=== PATIENT | male | born 1970 | race Caucasian/White ===

== ENCOUNTER 2022-12-03 14:34 | Emergency (ER) | payer OTHER ==
[2022-12-03] MEDS ORDERED: DIAZEPAM 5 MG TABLET ONE (15:18)
[2022-12-03] MEDS ORDERED: HYDROCODONE/APAP 5/325 MG TAB ONE (15:19)
--- NOTE | 2022-12-03 16:15 | RAD REPORT ---
EXAM DESCRIPTION: RAD - Shoulder Right 2 View - 12/03/2022 4:08 pm CLINICAL HISTORY: PAIN COMPARISON: No comparisons FINDINGS/IMPRESSION: No acute fracture. No malalignment. No significant focal degenerative changes.
--- NOTE | 2022-12-03 17:07 | ER ---
Nurse's Notes [facility] Name: Darnell Westbrook Jr Age: 52 yrs Sex: Male : 1970 Arrival Date: 12/03/2022 Time: 14:34 Bed Treatment Private MD: Diagnosis: Peripheral Neuropathy;Pain in right arm Presentation: 12/03 14:40 Chief complaint: Patient states: "I was throwing crap in the back of my truck a few aa5 days ago and ever since then my arm has been hurting". Pt c/o right shoulder pain radiating up to neck and down right arm. Coronavirus screen: At this time, the client does not indicate any symptoms associated with coronavirus-19. Ebola Screen: Patient denies travel to an Ebola-affected area in the 21 days before illness onset. Initial Sepsis Screen: Does the patient meet any 2 criteria? No. Patient's initial sepsis screen is negative. Does the patient have a suspected source of infection? No. Patient's initial sepsis screen is negative. Risk Assessment: Do you want to hurt yourself or someone else? Patient reports no desire to harm self or others. Onset of symptoms was November 2022. 14:40 Acuity: SADIA 4 aa5 14:40 Method Of Arrival: Ambulatory aa5 Historical: - Allergies: 14:42 No Known Allergies; aa5 - Home Meds: 14:42 None [Active]; aa5 - PMHx: 14:42 None; aa5 - Immunization history:: Adult Immunizations unknown. - Social history:: Smoking status: Patient reports the use of cigarette tobacco products. Screenin:[facility] ED Fall Risk Assessment (Adult) History of falling in the last 3 months, ph including since admission No falls in past 3 months (0 pts) Confusion or Disorientation No (0 pts) Intoxicated or Sedated No (0 pts) Impaired Gait No (0 pts) Mobility Assist Device Used No (0 pt) Altered Elimination No (0 pt) Score/Fall Risk Level 0 - 2 = Low Risk Maintained a safe environment, Hourly rounding (assess needs \\T\\ fall precautionary measures) done. Abuse screen: Denies threats or abuse. Denies injuries from another. Nutritional screening: No deficits noted. Tuberculosis screening: No symptoms or risk factors identified. Assessment: 15:00 General: Appears in no apparent distress. comfortable, slender, Behavior is calm, ph cooperative, appropriate for age. Pain: Complains of pain in right trapezius and right scapular area Pain radiates to right arm. Neuro: Gutiérrez Agitation-Sedation Scale (RASS): 0 - Alert and Calm Level of Consciousness is awake, alert, obeys commands, Oriented to person, place, time, situation. Cardiovascular: Capillary refill < 3 seconds in bilateral fingers Patient's skin is warm and dry. Respiratory: Airway is patent Respiratory effort is even, unlabored. Derm: Skin is pink, warm \\T\\ dry. Vital Signs: 14:40 BP 127 / 80; Pulse 67; Resp 18 S; Temp 97.2(TE); Pulse Ox 100% on R/A; Weight 74.84 kg aa5 (R); Height 6 ft. 3 in. (R); 14:40 Body Mass Index 20.62 (74.84 kg, 190.5 cm) aa5 ED Course: 14:37 Patient arrived in ED. am2 14:40 Arm band placed on. aa5 14:41 Triage completed. aa5 14:51 Oral Aguero DO is Attending Physician. ms3 15:08 Nu Tello, RN is Primary Nurse. ph 15:57 Patient has correct armband on for positive identification. Bed in low position. Call ph light in reach. Side rails up X 1. Door closed. Noise minimized. 16:10 Shoulder Right (2 View) XRAY In Process Unspecified. EDMS 17:00 No provider procedures requiring assistance completed. Patient did not have IV access ph during this emergency room visit. 17:05 Salomon Rodriguez DO is Referral Physician. ms3 Administered Medications: 15:14 Drug: HYDROcodone-acetaminophen PO 5 mg-325 mg 1 tabs Route: PO; ph 17:34 Follow up: Response: No adverse reaction ph 15:14 Drug: Diazepam PO 5 mg Route: PO; ph 17:34 Follow up: Response: No adverse reaction ph Medication: 15:57 VIS not applicable for this client. ph Outcome: 17:06 Discharge ordered by . ms3 17:33 Discharged to home ambulatory, with significant other. ph 17:33 Condition: good 17:33 Discharge instructions given to patient, Instructed on discharge instructions, follow up and referral plans. medication usage, Demonstrated understanding of instructions, follow-up care, medications, Prescriptions given X 2. 17:34 Patient left the ED. ph Signatures: Dispatcher [employer] EDAlisha Arriaga RN RN aa5 Nu Tello RN RN ph Génesis Miller am2 Oral Aguero DO DO ms3
--- NOTE | 2022-12-03 17:07 | EDPHYS ---
Physician Documentation [facility] Name: Darnell Westbrook Jr Age: 52 yrs Sex: Male : 1970 Arrival Date: 12/03/2022 Time: 14:34 Bed Treatment Private MD: ED Physician Oral Aguero HPI: 12/03 15:02 This 52 yrs old Male presents to ER via Ambulatory with complaints of Back Pain, ms3 Shoulder Pain - right, Arm Pain. 15:02 52-year-old male with no past medical history presents for right shoulder pain that is ms3 been ongoing for greater than 1 week. Patient states the pain is currently 10/10 and shooting down his right arm. Patient states he is taking BC powder, Aleve without relief. Patient states he has taken his mother's gabapentin and that gave him some relief. Patient denies fevers, chills, nausea, vomiting. Patient endorses medial forearm numbness. Patient states this began prior to his neck surgery in 2019.. Historical: - Allergies: 14:42 No Known Allergies; aa5 - Home Meds: 14:42 None [Active]; aa5 - PMHx: 14:42 None; aa5 - Immunization history:: Adult Immunizations unknown. - Social history:: Smoking status: Patient reports the use of cigarette tobacco products. ROS: 15:02 Constitutional: Negative for fever, and chills. Neck: Negative for injury, pain, and ms3 swelling, Cardiovascular: Negative for chest pain, and palpitations. Respiratory: Negative for shortness of breath, cough, wheezing, and pleuritic chest pain, Abdomen/GI: Negative for abdominal pain, nausea, vomiting, diarrhea, and constipation. 15:02 MS/extremity: Positive for pain, of the Right shoulder. 15:02 All other systems are negative. Exam: 15:02 Constitutional: This is a well developed, well nourished patient who is awake, alert, ms3 and in no acute distress. Head/Face: Normocephalic, atraumatic. Eyes: Pupils equal round and reactive to light, extra-ocular motions intact. Lids and lashes normal. Conjunctiva and sclera are non-icteric and not injected. Periorbital areas with no swelling, redness, or edema. Chest/axilla: Normal chest wall appearance and motion. Nontender with no deformity. Cardiovascular: Regular rate and rhythm with a normal S1 and S2. No gallops, murmurs, or rubs. Normal PMI, no JVD. No pulse deficits. Respiratory: Lungs have equal breath sounds bilaterally, clear to auscultation and percussion. No rales, rhonchi or wheezes noted. No increased work of breathing, no retractions or nasal flaring. Abdomen/GI: Soft, non-tender, with normal bowel sounds. No distension or tympany. No guarding or rebound. No evidence of tenderness throughout. 15:02 Musculoskeletal/extremity: Extremities: noted in the Right shoulder: pain, There is no evidence of contusion, decreased ROM, erythema, swelling. Vital Signs: 14:40 BP 127 / 80; Pulse 67; Resp 18 S; Temp 97.2(TE); Pulse Ox 100% on R/A; Weight 74.84 kg aa5 (R); Height 6 ft. 3 in. (R); 14:40 Body Mass Index 20.62 (74.84 kg, 190.5 cm) aa5 MDM: 15:02 Differential diagnosis: Osteoarthritis Muscle spasm vs Peripheral neuropathy. ms3 15:09 Patient medically screened. ms3 17:20 Data reviewed: vital signs, nurses notes, radiologic studies, plain films, and as a ms3 result, I will discharge patient. I considered the following discharge prescriptions or medication management in the emergency department Medications were administered in the Emergency Department. See MAR. Independent interpretation of the following test(s) in the Emergency Department X-Ray: My interpretation is Right shoulder x-ray images reviewed by me do not reveal fracture. Historians other than the Patient: Parent: Patient's mother. Counseling: I had a detailed discussion with the patient and/or guardian regarding: the historical points, exam findings, and any diagnostic results supporting the discharge/admit diagnosis, radiology results, the need for outpatient follow up, to return to the emergency department if symptoms worsen or persist or if there are any questions or concerns that arise at home. Response to treatment: the patient's symptoms have mildly improved after treatment, and as a result, I will discharge patient. Special discussion: I discussed with the patient/guardian in detail that at this point there is no indication for admission to the hospital. It is understood, however, that if the symptoms persist or worsen the patient needs to return immediately for re-evaluation. 12/03 15:02 Order name: Shoulder Right (2 View) XRAY; Complete Time: 16:50 ms3 Administered Medications: 15:14 Drug: HYDROcodone-acetaminophen PO 5 mg-325 mg 1 tabs Route: PO; ph 17:34 Follow up: Response: No adverse reaction ph 15:14 Drug: Diazepam PO 5 mg Route: PO; ph 17:34 Follow up: Response: No adverse reaction ph Disposition Summary: 12/03/22 17:06 Discharge Ordered Location: Home ms3 Condition: Stable ms3 Diagnosis - Peripheral Neuropathy ms3 - Pain in right arm ms3 Followup: ms3 - With: Salomon Rodriguez DO - When: 2 - 3 days - Reason: Recheck today's complaints Discharge Instructions: - Discharge Summary Sheet ms3 - Musculoskeletal Pain ms3 - Pain Without a Known Cause ms3 Forms: - Medication Reconciliation Form ms3 - Thank You Letter ms3 - Antibiotic Education ms3 - Prescription Opioid Use ms3 - Patient Portal Instructions ms3 Prescriptions: - gabapentin 300 mg Oral capsule - take 1 capsule by ORAL route On day #1: One tablet PO daily. Day #2: 1 Tablet ms3 for 10 days On day #1: One tablet PO daily. Day #2: 1 Tablet PO BID. Day #3 and foreward 1 tablet PO TID.; 27 capsule; Refills: 0, Product Selection Permitted - Ibuprofen 600 mg Oral Tablet - take 1 tablet by ORAL route every 6 hours As needed take with food; 30 tablet; ms3 Refills: 0, Product Selection Permitted Signatures: Dispatcher [employer] Alisha Rodríguez RN RN aa5 Nu Tello RN RN ph Oral Aguero DO DO ms3
[2022-12-03 17:58] VITALS: BP 127/80; TEMP 97.2; O2SAT 100
== END 2022-12-03 17:34 | disposition home or self-care (01) ==
LOC: ER 14:34
DX: G62.9 Polyneuropathy, unspecified (principal); Z72.0 Tobacco use
CPT/HCPCS: 99283

== ENCOUNTER → 2023-07-07 | Emergency (ER) | payer OTHER ==
[~2023-07-07] MED LIST: CYCLOBENZAPRINE 10 MG TAB ONE; HYDROCODONE/APAP 10/325 TAB ONE; KETOROLAC 30 MG/ML INJ ONE; MORPHINE 4 MG/ML SYR ONE; ONDANSETRON 4 MG/2 ML VIAL ONE; TDAP (DIPHTH,PERTUSS(ACELL),TET VAC) 0.5 ML VIAL IMVAC ONE
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
--- NOTE | 2023-07-07 04:34 | EDPHYS ---
Physician Documentation [facility] Name: Darnell Westbrook Jr Age: 52 yrs Sex: Male : 1970 Arrival Date: 07/07/2023 Time: 01:24 Bed 8 Private MD: ED Physician Edvin Guerrier HPI: 07/07 01:26 This 52 yrs old Male presents to ER via Unassigned with complaints of fall sp4 off elevator . 04:23 52-year-old male with history of tobacco use marijuana use also alcohol use, presents sp4 after a fall at home from a 10 foot high elevator. Patient sustained contusion to the left shoulder left chest wall left posterior arm. Left elbow , also forehead abrasions. No LOC. . Historical: - Allergies: 01:41 No Known Allergies; jj7 - PMHx: 01:41 None; jj7 - PSHx: 01:30 NECK; jj7 - Immunization history:: Adult Immunizations not up to date, Client reports having NOT received the Covid vaccine. - Social history:: Smoking status: Patient reports the use of cigarette tobacco products, smokes one pack cigarettes per day. Patient uses alcohol, occasionally. street drugs, marijuana. - Family history:: not pertinent. ROS: 04:28 Constitutional: Negative for fever, chills, and weight loss, positive for forehead sp4 abrasions, left upper arm abrasion, left elbow contusion, left shoulder contusion, left posterior chest wall abrasions and contusions. Eyes: Negative for injury, pain, redness, and discharge, 04:28 All other systems are negative, Exam: 04:28 Constitutional: This is a well developed, well nourished patient who is awake, alert, sp4 and in no acute distress. Head/Face: Normocephalic, positive abrasions to left forehead just at the hairline. Eyes: Pupils equal round and reactive to light, extra-ocular motions intact. Lids and lashes normal. Conjunctiva and sclera are not injected. Cornea within normal limits. Periorbital areas with no swelling, redness, or edema. ENT: Nares patent. No nasal discharge, no septal abnormalities noted. Tympanic membranes are normal and external auditory canals are clear. Oropharynx with no redness, swelling, or masses, exudates, or evidence of obstruction, uvula midline. Mucous membranes moist. Neck: Trachea midline, no thyromegaly or masses palpated, and no cervical lymphadenopathy. Supple, full range of motion without nuchal rigidity, or vertebral point tenderness. Chest/axilla: Normal chest wall appearance and motion. Nontender with no deformity. Positive posterior chest wall abrasion and contusion . Cardiovascular: Regular rate and rhythm with a normal S1 and S2. No gallops, murmurs, or rubs. Normal PMI, no JVD. No pulse deficits. Respiratory: Lungs have equal breath sounds bilaterally, clear to auscultation and percussion. No rales, rhonchi or wheezes noted. No increased work of breathing, no retractions or nasal flaring. Abdomen/GI: Soft, with normal bowel sounds. No distension or tympany. No guarding or rebound. No evidence of tenderness throughout. Back: No spinal tenderness. No costovertebral tenderness. Male : Normal genitalia with no discharge or lesions. Skin: Warm, dry with normal turgor. Normal color with no rashes, positive for head abrasions, left upper arm abrasions, posterior left chest wall abrasions MS/ Extremity: Pulses equal, no cyanosis. Neurovascular intact. Full, normal range of motion. Positive left upper arm contusion hematoma and abrasion on the medial side. Normal peripheral pulses Neuro: Awake and alert, GCS 15, oriented to person, place, time, and situation. Cranial nerves II-XII grossly intact. Motor strength 5/5 in all extremities. Sensory grossly intact. Psych: Awake, alert, with orientation to person, place and time. Behavior, mood, and affect are within normal limits Vital Signs: 01:30 BP 131 / 77; Pulse 66; Resp 17; Temp 98.7; Pulse Ox 100% ; Weight 68.04 kg; Height 6 jj7 ft. 4 in. ; Pain 8/10; 02:37 BP 110 / 62; Pulse 60; Resp 18; Pulse Ox 100% on R/A; oe 03:30 BP 107 / 69; Pulse 62; Resp 18; Pulse Ox 100% ; vc1 01:30 Body Mass Index 18.26 (68.04 kg, 193.04 cm) [facility] 01:30 Pain Scale: Adult [facility] Erin Coma Score: 04:28 Eye Response: spontaneous(4). Motor Response: obeys commands(6). Verbal Response: sp4 oriented(5). Total: 15. MDM: 01:25 Patient medically screened. kb 04:17 ED course: CT report - IMPRESSION: 1. No acute intracranial or cervical spine sp4 abnormality. Allowing for lack of intravenous contrast, no acute abnormality of the chest, abdomen, or pelvis. 2. Depressed fracture of the right nasal bone without overlying soft tissue swelling, suggesting chronicity. 3. ACDF hardware fixation of the C4-C7 vertebral levels with intervertebral bodies. No evidence of hardware fracture or loosening. 4. Multilevel moderate spinal canal narrowing secondary to disc osteophytosis, greatest in the C3-4 and C6-7 levels, and along the left lateral recesses. . ED course: CLINICAL INDICATION: The patient is 52 years old and is Male; PAIN Bed Name: 8 TECHNIQUE: Frontal and lateral views of the left forearm. COMPARISON: No relevant prior studies available. FINDINGS: BONES/JOINTS: No acute fracture. No suspicious lytic or blastic bone lesions. No subluxation or dislocation. SOFT TISSUES: Suspected subcutaneous edema along the ventral aspect of the mid to distal left forearm. No radiopaque foreign body. IMPRESSION: 1. Suspected subcutaneous edema along the ventral aspect of the mid to distal left forearm. Clinical correlation for swelling or cellulitis. 2. No acute osseous abnormality. No radiopaque foreign body.. ED course: PROCEDURE: XR Left Humerus, 2 or More Views CLINICAL INDICATION: The patient is 52 years old and is Male; PAIN Bed Name: 8 TECHNIQUE: Frontal and lateral views of the left humerus. COMPARISON: No relevant prior studies available. FINDINGS: BONES/JOINTS: No acute fracture. No suspicious lytic or blastic bone lesions. No subluxation or dislocation. SOFT TISSUES: Unremarkable IMPRESSION: No acute findings in the left humerus. . 04:28 Differential Diagnosis altered mental status, sepsis, flu. Data reviewed: vital signs, sp4 nurses notes, EMS record, radiologic studies, CT scan, plain films. Consideration of Admission/Observation Escalation of care including admission/observation considered. ED course: CT and x-rays revealed no acute abnormality. Patient stable for discharge home with p.o. tramadol, ibuprofen, and Flexeril.. . 07/07 01:26 Order name: CT Traumagram (Head C Spine CAP wo con) kb 07/07 01:26 Order name: Humerus Left XRAY 07/07 01:26 Order name: Forearm Left XRAY 07/07 05:01 Order name: Sling; Complete Time: 05:07 sp4 Administered Medications: 01:57 Drug: morphine IVP or IV 4 mg IVP once over 4 mins Route: IVP; Infused Over: 4 mins; jj7 Site: right antecubital; 05:07 Follow up: Response: No adverse reaction; Marked relief of symptoms vc1 01:57 Drug: Ketorolac IVP 30 mg IVP once Route: IVP; Site: right antecubital; jj7 05:07 Follow up: Response: No adverse reaction; Marked relief of symptoms; Pain is decreased vc1 01:57 Drug: Ondansetron IVP 4 mg IVP once; over 2 minutes Route: IVP; Site: right antecubital;jj7 05:08 Follow up: Response: No adverse reaction; Marked relief of symptoms; Pain is decreased vc1 05:08 CANCELLED (Other Intervention Used): tetanus-diphtheria toxoidadult 0.5 ml IM once; vc1 Provide Vaccine Information Statement (VIS). 05:08 Drug: Boostrix Tdap IM 0.5 ml IM once; as a single dose Route: IM; Site: right gluteus; vc1 05:09 Follow up: Response: Medication administered at discharge. vc1 05:09 Drug: [place] PO 10 mg-325 mg 1 tabs PO once Route: PO; vc1 05:10 Follow up: Response: Medication administered at discharge. vc1 05:09 Drug: Cyclobenzaprine PO 10 mg PO once Route: PO; vc1 05:09 Follow up: Response: Medication administered at discharge. vc1 Disposition Summary: 07/07/23 04:33 Discharge Ordered Notes: Location: Home sp4 Problem: new sp4 Symptoms: have improved sp4 Condition: Stable sp4 Diagnosis - Contusion of back wall of thorax sp4 - Posterior chest wall contusion, posterior chest wall abrasion, left upper arm sp4 contusion, left upper arm abrasion, forehead abrasion, left upper arm traumatic hematoma Followup: sp4 - With: Private Physician - When: 7 - 10 days - Reason: Recheck today's complaints Discharge Instructions: - Discharge Summary Sheet sp4 - Abrasion, [id number] sp4 Forms: - Patient Portal Instructions sp4 Prescriptions: - Ibuprofen 800 mg Oral Tablet - take 1 tablet ORAL route every 8 hours As needed take with food; 30 tablet; sp4 Refills: 0, Product Selection Permitted - Cyclobenzaprine 10 mg Oral Tablet - take 1 tablet ORAL route every 8 hours As needed; 30 tablet; Refills: 0, sp4 Product Selection Permitted - Tramadol 50 mg Oral Tablet - take 1 tablet ORAL route every 8 hours as needed; 12 tablet; Refills: 0, sp4 Product Selection Permitted Signatures: Dispatcher [employer] EDNM Nohelia Garcia FNP-C CERTIFIED NURSE PRACTITIONERDiana Holguin RN RN vc1 Renu Reynolds RN RN jj7 Edvin Guerrier MD MD sp4 Corrections: (The following items were deleted from the chart) 05:08 04:28 Tetanus-Diphtheria Toxoid IM Adult 0.5 ml IM once; Provide Vaccine Information vc1 Statement (VIS). ordered. sp4 05:08 05:08 Tetanus-Diphtheria Toxoid IM Adult 0.5 ml IM once; Provide Vaccine Information vc1 Statement (VIS). ordered. vc1
[2023-07-07 05:33] VITALS: BP 107/69; TEMP 98.7; O2SAT 100
--- NOTE | 2023-07-07 11:24 | RAD REPORT ---
EXAM DESCRIPTION: CT - Head C Spine Cap Anjelica Con - 07/07/2023 6:51 am CLINICAL HISTORY: The patient is 52 years old and is Male; TRAUMA Bed Name: 8 TECHNIQUE: Axial computed tomography images of the head and cervical spine. Axial computed tomogra phy images of the chest, abdomen and pelvis without intravenous contrast. Sagittal and coronal refo rmatted images were created and reviewed. This CT exam was performed using one or more of the follo wing dose reduction techniques: automated exposure control, adjustment of the mA and/or kV accordin g to patient size, and/or use of iterative reconstruction technique. COMPARISON: No relevant prior studies available. FINDINGS: HEAD AND NECK: BRAIN: No extra-axial fluid collection. No intracranial hemorrhage. No transtentorial herniation. No focal valle-white matter differentiation abnormality. MIDLINE SHIFT: No midline shift. CERVICAL SPINE: ACDF hardware fixation of the C4-C7 vertebral levels with intervertebral bodies. Craniocervical orientation is normal. No evidence of hardware fracture or loosening. No acute vertebral body height loss or fracture. Incomplete disc space fusion demonstrated at the C4-5, C5-6, C6-7 levels. Multilevel moderate spinal canal narrowing secondary to disc osteophytosis, greatest in the C 3-4 and C6-7 levels, and along the left lateral recesses. Dens is intact. SKULL: Depressed fracture of the right nasal bone without overlying soft tissue swel ling, suggesting chronicity. No fracture of the calvarium or remaining visualized facial bones. CHEST: LUNGS: Unremarkable No mass. No consolidation. PLEURAL SPACE: Unremarkable No significant effusion. No pneumothorax. HEART: No cardiomegaly. No significant pericardial effusion. No significant coronary artery maral cifications. ABDOMEN: LIVER: Unremarkable GALLBLADDER AND BILE DUCTS: Unremarkable No calcified stones. No ductal dilation. PANCREAS: Unremarkable No ductal dilation. SPLEEN: Unremarkable No splenomegaly. ADRENALS: Unremarkable No mass. KIDNEYS AND URETERS: Unremarkable No obstructing stones. No hydronephrosis. STOMACH AND BOWEL: Unremarkable No obstruction. No mucosal thickening. PELVIS: APPENDIX: No findings to suggest acute appendicitis. BLADDER: Unremarkable No stones. REPRODUCTIVE: Unremarkable as visualized. CHEST, ABDOMEN and PELVIS: INTRAPERITONEAL SPACE: No free air or significant free fluid or suspicious fluid collection. BONES/JOINTS: Mild multilevel spondylosis of the thoracic and lumbar spine. No acute vertebral body height loss or fracture. No significant subluxation. No dislocation. SOFT TISSUES: No abnormal prevertebral soft tissue swelling. VASCULATURE: Unremarkable No aortic aneurysm. LYMPH NODES: Unremarkable No enlarged lymph nodes. IMPRESSION: 1. No acute intracranial or cervical spine abnormality. Allowing for lack of intrave nous contrast, no acute abnormality of the chest, abdomen, or pelvis. 2. Depressed fracture of the right nasal bone without overlying soft tissue swelling, suggesting ch ronicity. 3. ACDF hardware fixation of the C4-C7 vertebral levels with intervertebral bodies. No evidence of hardware fracture or loosening. 4. Multilevel moderate spinal canal narrowing secondary to disc osteophytosis, greatest in the C3-4 and C6-7 levels, and along the left lateral recesses. Electronically signed by: Yusuf Singh MD 07/07/2023 03:13 AM DOULA Due to temporary technical issues with the PACS/Fluency reporting system, reports are being signed by the in house radiologist without review as a courtesy to ensure prompt reporting. The interpreting r adiologist is fully responsible for the content of the report.
--- NOTE | 2023-07-07 13:49 | RAD REPORT ---
EXAM DESCRIPTION: RAD - Forearm Left - 07/07/2023 2:16 am CLINICAL HISTORY: The patient is 52 years old and is Male; PAIN Bed Name: 8 TECHNIQUE: Frontal and lateral views of the left forearm. COMPARISON: No relevant prior studies available. FINDINGS: BONES/JOINTS: No acute fracture. No suspicious lytic or blastic bone lesions. No subluxa tion or dislocation. SOFT TISSUES: Suspected subcutaneous edema along the ventral aspect of the mid to distal left forea rm. No radiopaque foreign body. IMPRESSION: 1. Suspected subcutaneous edema along the ventral aspect of the mid to distal left for earm. Clinical correlation for swelling or cellulitis. 2. No acute osseous abnormality. No radiopaque foreign body. Electronically signed by: Yusuf Singh MD 07/07/2023 03:15 AM SOA INTEGRATION ARCHITECT Due to temporary technical issues with the PACS/Fluency reporting system, reports are being signed by the in house radiologist without review as a courtesy to ensure prompt reporting. The interpreting r adiologist is fully responsible for the content of the report.
--- NOTE | 2023-07-07 13:51 | RAD REPORT ---
EXAM DESCRIPTION: RAD - Humerus Left - 07/07/2023 2:16 am CLINICAL HISTORY: The patient is 52 years old and is Male; PAIN Bed Name: 8 TECHNIQUE: Frontal and lateral views of the left humerus. COMPARISON: No relevant prior studies available. FINDINGS: BONES/JOINTS: No acute fracture. No suspicious lytic or blastic bone lesions. No subluxa tion or dislocation. SOFT TISSUES: Unremarkable IMPRESSION: No acute findings in the left humerus. Electronically signed by: Yusuf Singh MD 07/07/2023 03:18 AM CUTTER OPERATOR HELPER Due to temporary technical issues with the PACS/Fluency reporting system, reports are being signed by the in house radiologist without review as a courtesy to ensure prompt reporting. The interpreting r adiologist is fully responsible for the content of the report.
== END ==
LOC: ER 01:24
DX: S00.81XA Abrasion of other part of head, initial encounter (principal); S20.312A Abrasion of left front wall of thorax, initial encounter; S40.812A Abrasion of left upper arm, initial encounter; S20.222A Contusion of left back wall of thorax, initial encounter; S20.212A Contusion of left front wall of thorax, initial encounter; S40.022A Contusion of left upper arm, initial encounter; F17.210 Nicotine dependence, cigarettes, uncomplicated
CPT/HCPCS: 70450; 71250; 72125; 73090; 73060; J2405

== ENCOUNTER 2023-12-30 20:54 | Emergency (ER) | payer OTHER, SELFPAY ==
[2023-12-30] MEDS ORDERED: MULTIVITAMINS 10 ML VIAL (INJ) IV ONE (21:16)
[2023-12-30] MEDS ORDERED: THIAMINE 200 MG/2 ML INJ ONE (21:16)
[2023-12-30] MEDS ORDERED: NA CHLORIDE 0.9% 2,000 ML ONE (21:17)
[2023-12-30] MEDS ORDERED: FOLIC ACID 5 MG/ML VIAL ONE (21:17)
[2023-12-30] MEDS ORDERED: ONDANSETRON 4 MG/2 ML VIAL ONE (21:49)
[2023-12-30] MEDS ORDERED: CEFTRIAXONE 1000 MG/VIAL ONE (21:49)
[2023-12-30] MEDS ORDERED: NA CHLORIDE 0.9% 50 ML ONE (21:49)
[2023-12-30 22:15] LABS: Absolute Eosinophils 0.3 K/uL (0-0.5); Absolute Lymphocytes (CBC) 0.4 K/uL (0.7-4.9); Absolute Monocytes 0.1 K/uL (0.1-1.3); Absolute Neutrophil 9.3 K/uL (1.8-8.0); Basophils % 0.2 % (0-1.3); Eosinophils % 2.8 % (0-4.4); Hematocrit 41.1 % (39.6-49.0); Hemoglobin 13.8 g/dL (13.6-17.9); Lymphocytes % 3.7 % (15.3-44.8); MCH 30.9 pg (27.0-35.0); MCHC 33.5 g/dL (32.0-36.0); MCV 92.4 fL (80-100); MPV 7.8 fL (7.6-11.3); Monocytes % 1.2 % (3.3-12.3); Neutrophils % 92.1 % (41.7-73.7); Nucleated Red Blood Cells % 0.1 % (0-0); Platelets 246 thou/uL (152-406); RBC Red Blood Cell Count 4.46 M/uL (4.33-5.43); Red Cell Distribution Width 13.7 % (12.1-15.2)
[2023-12-30 22:32] LABS: Albumin 3.5 g/dL (3.4-5.0); Anion Gap 9.1 mEq/L (5.0-15.0); Bilirubin Total 0.8 mg/dL (0.2-1.0); Globulin 3.6 g/dL (2.3-3.5); Potassium 4.1 mEq/L (3.5-5.1); Protein, Total 7.1 g/dL (6.4-8.2)
[2023-12-30 22:33] LABS: Thyroid Stimulating Hormone 5.68 uIU/mL (0.358-3.740)
[2023-12-30] MEDS ORDERED: LIDOCAINE 1% 20 ML MDV ONE (23:22)
[2023-12-30 23:24] LABS: Band Neutrophils 9 % (0-1); Blood Morphology Comment NOT SEEN (NOT SEEN); Differential Total Cells Count 100; Eosinophils 6 % (0-3); Lymphocytes 2 % (15-42); Monocytes 2 % (0-10); Platelet Estimate ADEQ; Segmented Neutrophils 81 % (40-80)
[2023-12-30] MEDS ORDERED: FAMOTIDINE 20 MG/2 ML VIAL IV ONE (23:42)
[2023-12-30] MEDS ORDERED: MAGNES/ALUMIN/SIMET 30ML UCUP ONE (23:42)
[2023-12-30 23:46] LABS: Hepatitis B Core IgM Nonreactive (Nonreactive); Hepatitis B surface AG Interp. Nonreactive (Nonreactive); Hepatitis C Virus Ab Nonreactive (Nonreactive)
[2023-12-30 23:47] LABS: HBsAG Nonreactive Report Report
[2023-12-31 00:24] LABS: Specific Gravity > 1.030 (1.005-1.030); Urine Bilirubin NEGATIVE (Negative); Urine Blood Negative (Negative); Urine Clarity Clear (Clear); Urine Color Yellow (Yellow); Urine Glucose NEGATIVE (Negative); Urine Ketones NEGATIVE (Negative); Urine Microscopic Reflex YN NO UMIC; Urine Nitrite NEGATIVE (Negative); Urine Protein NEGATIVE (Negative); Urine Urobilinogen Normal (Normal)
--- NOTE | 2023-12-31 00:30 | ER ---
Nurse's Notes [facility] Name: Darnell Westbrook Jr Age: 53 yrs Sex: Male : 1970 Arrival Date: 12/30/2023 Time: 20:54 Bed 6 Private MD: Diagnosis: Dehydration;Noninfective gastroenteritis and colitis, unspecified;Due to heat exhaustion, acute gastroenteritis, nausea and vomiting, left wrist and left forearm abscess, infected spider bite Presentation: 12/29 21:02 Chief complaint: Patient states: nausea, vomiting, diarrhea since 1500 this afternoon. kj2 Coronavirus screen: At this time, the client does not indicate any symptoms associated with coronavirus-19. Ebola Screen: No symptoms or risks identified at this time. Initial Sepsis Screen: Does the patient meet any 2 criteria? No. Patient's initial sepsis screen is negative. Does the patient have a suspected source of infection? No. Patient's initial sepsis screen is negative. Risk Assessment: Do you want to hurt yourself or someone else? Patient reports no desire to harm self or others. Onset of symptoms was December 30, 2023. 21:02 Method Of Arrival: Ambulatory kj2 21:02 Acuity: SADIA 3 kj2 21:02 Acuity: SADIA 3 kj2 12/30 00:52 No acute neurological deficit is noted. Pre-hospital glucose is not applicable to this bm8 patient. Triage Assessment: 00:52 The onset of the patients symptoms was. bm8 Stroke Activation: Physician: ED Attending; Name: ; Notified At: ; Arrived At: Physician: Mid-Level Provider; Name: ; Notified At: ; Arrived At: Physician: [not used]; Name: ; Notified At: ; Arrived At: Physician: [not used]; Name: ; Notified At: ; Arrived At: Physician: [not used]; Name: ; Notified At: ; Arrived At: 00:52 n/a bm8 Historical: - Allergies: 12/29 21:05 No Known Allergies; kj2 - Home Meds: 21:05 gabapentin oral [Active]; kj2 - PMHx: 21:05 copd; kj2 - PSHx: 21:05 neck; kj2 - Immunization history:: Adult Immunizations unknown. - Infectious Disease History:: Denies. - Social history:: Smoking status: Patient reports the use of cigarette tobacco products, smokes one-half pack cigarettes per day. - Family history:: not pertinent. Screenin:20 [facility] ED Fall Risk Assessment (Adult) History of falling in the last 3 months, bm8 including since admission No falls in past 3 months (0 pts) Confusion or Disorientation No (0 pts) Intoxicated or Sedated No (0 pts) Impaired Gait No (0 pts) Mobility Assist Device Used No (0 pt) Altered Elimination No (0 pt) Score/Fall Risk Level 0 - 2 = Low Risk Oriented to surroundings, Maintained a safe environment, Educated pt \\T\\ family on fall prevention, incl call for assistance when getting out of bed, Assessed \\T\\ reinforced patient's understanding of fall precautions, Hourly rounding (assess needs \\T\\ fall precautionary measures) done, Used ambulatory aids as needed (educated on \\T\\ assisted with), Used gait belt as appropriate. Abuse screen: Denies threats or abuse. Nutritional screening: No deficits noted. Tuberculosis screening: No symptoms or risk factors identified. Assessment: 22:20 VAN Scoring: Arm Drift: Patients demonstrates NO arm weakness. Patient is VAN Negative. bm8 Visual Disturbance: No visual disturbance noted. Aphasia: No aphasia noted. Neglect: No neglect noted. [place] Swallow Protocol Exclusion Criteria: Unable to remain alert for testing: No NPO for medical/surgical reason by provider order No Head-of-bed restricted <30 degrees Tracheostomy tube present No No thin liquids due to preexisting dysphagia/baseline modified diet thickened liquids No Exclusion Criteria Result: Proceed Brief Cognitive Screen What is your name? Normal, Where are you right now? Normal, What year is it? Normal. Oral Mechanism Examination Facial Symmetry: Normal, Motion: Normal, Lip Closure: Normal, Oral Mechanism Result: Normal. 3 oz Water Swallow Challenge: Pt able to drink all water without stopping, coughing, choking or throat clearing: Yes Result: PASS MD Notified: Edvin Guerrier MD. TNKase (Tenecteplase) Screening: Not Applicable. General: Appears in no apparent distress. comfortable, Behavior is calm, cooperative, appropriate for age. Pain: Complains of pain in right hand, left hand, right arm and left arm Pain currently is 5 out of 10 on a pain scale. Quality of pain is described as aching, crampy, sharp, Pain began "about a week". Neuro: No deficits noted. Level of Consciousness is awake, alert, obeys commands, Oriented to person, place, time, situation, Appropriate for age Catering Sales Manager are equal bilaterally Moves all extremities. Full function Gait is steady, Speech is normal, Facial symmetry appears normal, Pupils are PERRLA, Pupil Size: 3mm Intact. Cardiovascular: Denies chest pain, Heart tones S1 S2 present Capillary refill < 3 seconds Patient's skin is warm and dry. Respiratory: No deficits noted. Airway is patent Trachea midline Respiratory effort is even, unlabored, Respiratory pattern is regular, symmetrical. Respiratory: Breath sounds are clear bilaterally. GI: Reports nausea. : No signs and/or symptoms were reported regarding the genitourinary system. EENT: No signs and/or symptoms were reported regarding the EENT system. Derm: Wound noted Other: multiple small healing wounds on bilaterally upper ext. Rash present on arms raised and red. pt states he got the rash from poison j[place] l[place] doing yard work. Abscess located on left wrist is quarter sized, has no drainage, is red, is raised, Reports itching, pain. 23:45 Reassessment: Patient appears in no apparent distress at this time. Patient and/or bm8 family updated on plan of care and expected duration. Pain level reassessed. Patient is alert, oriented x 3, equal unlabored respirations, skin warm/dry/pink. pt is resting with eyes closed breathing is even and unlabored. currently denies pain. mother at bedside. Patient denies pain at this time. Patient states feeling better. Patient states symptoms have improved. 12/30 00:47 Reassessment: No changes from previously documented assessment. Patient denies pain at 8 this time. Patient states feeling better. Patient states symptoms have improved. Vital Signs: 12/29 21:08 BP 101 / 78; Pulse 73; Resp 15; Temp 97.8; Pulse Ox 100% on R/A; Weight 58.97 kg; kj2 Height 6 ft. 4 in. ; Pain 5/10; 22:39 BP 109 / 69; Pulse 61; Resp 17; Temp 97.8; Pulse Ox 99% ; Pain 0/10; bm8 23:46 BP 115 / 76; Pulse 69; Resp 17; Pulse Ox 100% ; jj7 12/30 00:47 BP 106 / 78; Pulse 60; Resp 18; Temp 97.8; Pulse Ox 98% ; Pain 0/10; bm8 12/29 21:08 Body Mass Index 15.82 (58.97 kg, 193.04 cm) kj2 12/29 21:08 Pain Scale: Adult kj2 22:39 Pain Scale: Adult bm8 12/30 00:47 Pain Scale: Adult bm8 David Coma Score: 12/29 22:20 Eye Response: spontaneous(4). Motor Response: obeys commands(6). Verbal Response: bm8 oriented(5). Total: 15. 22:39 Eye Response: spontaneous(4). Motor Response: obeys commands(6). Verbal Response: bm8 oriented(5). Total: 15. 12/30 00:47 Eye Response: spontaneous(4). Motor Response: obeys commands(6). Verbal Response: bm8 oriented(5). Total: 15. 01:59 Eye Response: spontaneous(4). Motor Response: obeys commands(6). Verbal Response: sp4 oriented(5). Total: 15. NIH Stroke Scale Scores: 12/29 22:20 NIHSS Score: 0 bm8 ED Course: 20:57 Patient arrived in ED. gm2 21:00 Edvin Guerrier MD is Attending Physician. sp4 21:05 Triage completed. kj2 21:09 Arm band placed on right wrist. Patient placed in an exam room, on a stretcher. kj2 21:14 Ba Arias, RN is Primary Nurse. bm8 21:14 Inserted saline lock: 20 gauge in right hand, using aseptic technique. Blood collected. bm8 Flushed with 10 mL NS. 22:20 Patient has correct armband on for positive identification. Bed in low position. Call bm8 light in reach. Side rails up X 1. Adult w/ patient. Client placed on continuous cardiac and pulse oximetry monitoring. NIBP monitoring applied. Pulse ox on. NIBP on. Door closed. Noise minimized. Pillow given. Verbal reassurance given. Head of bed elevated. 22:20 No provider procedures requiring assistance completed. Inserted saline lock: 20 gauge bm8 in left forearm, using aseptic technique. Blood collected. Flushed with 10 mL NS. 22:38 IV discontinued, intact, bleeding controlled, No redness/swelling at site. Pressure bm8 dressing applied, from right hand. 23:02 CT Chest, Abdomen, Pelvis - W/Contrast In Process Unspecified. EDMS 12/30 00:47 Provided Education on: post er care. bm8 00:47 IV discontinued, intact, bleeding controlled, No redness/swelling at site. Pressure bm8 dressing applied. Administered Medications: 12/29 21:47 Drug: NS 0.9% IV 1000 ml IV at 125 ml/hr continuous Route: IV; Rate: 125 ml/hr; Site: bm8 right hand; 12/30 00:26 Follow up: Response: No adverse reaction; IV Status: Completed infusion; IV Intake: bm8 1000ml 12/29 21:47 Drug: Banana Bag - (Multivitamin IV 1 amp, NS 0.9% IV 1000 ml, Thiamine IV 100 mg, bm8 foLIC Acid IVPB 1 mg) IV at calculated rate once Route: IV; Rate: calculated rate; Site: right hand; 23:14 Follow up: Response: No adverse reaction; IV Status: Completed infusion; IV Intake: bm8 1000ml 21:56 Drug: Ondansetron IVP 4 mg IVP once; over 2 minutes Route: IVP; Site: right hand; bm8 23:14 Follow up: Response: No adverse reaction bm8 21:56 Drug: Rocephin - Rocephin (cefTRIAXone) IVPB 1 grams IVPB once over 30 mins; (mix in 50 bm8 mL NS) Route: IVPB; Infused Over: 30 mins; Site: right hand; 23:13 Follow up: Response: No adverse reaction; IV Status: Completed infusion; IV Intake: [id number] 23:40 Drug: Lidocaine Infiltration (1 %) 20 ml 20 ml Infiltration once; to bedside {Note: by bm8 provider.} Volume: 20 ml; Route: Infiltration; Site: affected area; 12/30 00:04 Follow up: Response: No adverse reaction bm8 12/29 23:45 Drug: Famotidine IVP 20 mg IVP once; dilute with 10 mL 0.9% NaCl; give over 2 minutes bm8 Route: IVP; Site: left forearm; 12/30 00:26 Follow up: Response: No adverse reaction bm8 00:04 Drug: Alum-Mag Hydroxide-Simeth PO Suspension (200 mg-200 mg-20 mg/5 mL) 30 ml PO once bm8 Route: PO; 00:26 Follow up: Response: No adverse reaction bm8 Medication: 12/29 22:20 VIS not applicable for this client. bm8 Point of Care Testing: Blood Glucose: 21:14 Blood Glucose: 111 mg/dL; bm8 Ranges: Intake: 23:13 IV: 50ml; Total: 50ml. bm8 23:14 IV: 1000ml; Total: 1050ml. bm8 12/30 00:26 IV: 1000ml; Total: 2050ml. bm8 Outcome: 00:29 Discharge ordered by . sp4 00:47 Discharged to home via wheelchair, bm8 00:47 Condition: stable 00:47 Discharge instructions given to patient, family, Instructed on discharge instructions, follow up and referral plans. safety practices, Demonstrated understanding of instructions, follow-up care, medications, Prescriptions given X 3, 01:00 Patient left the ED. bm8 NIH Stroke Scale - NIH Stroke Score Date: 12/30/2023 Time: 22:20 Total Score = 0 10. Dysarthria (speech clarity - read or repeat words) - 0(Normal) 11. Extinction and Inattention (visual/tactile/auditory/spatial/personal) - 0(No abnormality) 1a. Level of Consciousness (LOC) - 0(Alert) 1b. Level of Consciousness (LOC) (Month \\T\\ Age) - 0(Both) 1c. LOC Commands (Open \\T\\ Closes Eyes/[employer] Team Leader) - 0(Both) 2. Best Gaze (Lateral Gaze Paresis) - 0(Normal) 3. Visual Field Loss - 0(No visual loss) 4. Facial Palsy - 0(Normal) 5a. Left Arm: Motor (10-second hold) - 0(No drift) 5b. Right Arm: Motor (10-second hold) - 0(No drift) 6a. Left Leg: Motor (5-second hold - always test supine) - 0(No drift) 6b. Right Leg: Motor (5-second hold - always test supine) - 0(No drift) 7. Limb Ataxia (finger/nose \\T\\ heel/vasquez - test with eyes open) - 0(Absent) 8. Sensory Loss (pinprick arms/legs/face) - 0(Normal) 9. Best Language: Aphasia (description/naming/reading) - 0(No aphasia) Initials: bm8 Signatures: Dispatcher [employer] Renu Horner, RN RN jj7 Edvin Guerrier MD MD sp4 Cailin Kc gm2 Ba Arias RN RN bm8 Ora Reyna RN RN kj2
--- NOTE | 2023-12-31 00:30 | EDPHYS ---
Physician Documentation [facility] Name: Darnell Westbrook Jr Age: 53 yrs Sex: Male : 1970 Arrival Date: 12/30/2023 Time: 20:54 Bed 6 Private MD: ED Physician Edvin Guerrier HPI: 12/29 21:00 This 53 yrs old Male presents to ER via Unassigned with complaints of sp4 Weakness, Nausea/Vomiting/Diarrhea, Rash. 12/30 01:58 Patient complains of heat exhaustion over several days also complains of left wrist sp4 abscess secondary to spider bite and multiple areas of lesions also thought to be secondary to spider bites. Additional complaint include nausea vomiting diarrhea , rash and generalized weakness. . Historical: - Allergies: 12/29 21:05 No Known Allergies; kj2 - Home Meds: 21:05 gabapentin oral [Active]; kj2 - PMHx: 21:05 copd; kj2 - PSHx: 21:05 neck; kj2 - Immunization history:: Adult Immunizations unknown. - Infectious Disease History:: Denies. - Social history:: Smoking status: Patient reports the use of cigarette tobacco products, smokes one-half pack cigarettes per day. - Family history:: not pertinent. ROS: 12/30 01:58 Constitutional: Positive for feeling unwell, positive for some weight loss, positive sp4 for multiple areas of rash and lesions, positive for generalized weakness and heat exhaustion All other systems are negative, Exam: 01:59 Constitutional: This is a well developed, well nourished patient who is awake, alert, sp4 and in no acute distress. Head/Face: Normocephalic, atraumatic. Eyes: Pupils equal round and reactive to light, extra-ocular motions intact. Lids and lashes normal. Conjunctiva and sclera are not injected. Cornea within normal limits. Periorbital areas with no swelling, redness, or edema. ENT: Nares patent. No nasal discharge, no septal abnormalities noted. Tympanic membranes are normal and external auditory canals are clear. Oropharynx with no redness, swelling, or masses, exudates, or evidence of obstruction, uvula midline. Mucous membranes moist. Neck: Trachea midline, no thyromegaly or masses palpated, and no cervical lymphadenopathy. Supple, full range of motion without nuchal rigidity, or vertebral point tenderness. Chest/axilla: Normal chest wall appearance and motion. Nontender with no deformity. No lesions are appreciated. Cardiovascular: Regular rate and rhythm with a normal S1 and S2. No gallops, murmurs, or rubs. Normal PMI, no JVD. No pulse deficits. Respiratory: Lungs have equal breath sounds bilaterally, clear to auscultation and percussion. No rales, rhonchi or wheezes noted. No increased work of breathing, no retractions or nasal flaring. Abdomen/GI: Soft, with normal bowel sounds. No distension or tympany. No guarding or rebound. No evidence of tenderness throughout. Back: No spinal tenderness. No costovertebral tenderness. Skin: Warm, dry with normal turgor. Normal color with multiple areas of lesions and a left wrist abscess consistent with recent spider bite. Left wrist abscess located on the ulnar side of the wrist MS/ Extremity: Pulses equal, no cyanosis. Neurovascular intact. Full, normal range of motion. Neuro: Awake and alert, GCS 15, oriented to person, place, time, and situation. Cranial nerves II-XII grossly intact. Motor strength 5/5 in all extremities. Sensory grossly intact. Psych: Awake, alert, with orientation to person, place and time. Behavior, mood, and affect are within normal limits Vital Signs: 12/29 21:08 BP 101 / 78; Pulse 73; Resp 15; Temp 97.8; Pulse Ox 100% on R/A; Weight 58.97 kg; kj2 Height 6 ft. 4 in. ; Pain 5/10; 22:39 BP 109 / 69; Pulse 61; Resp 17; Temp 97.8; Pulse Ox 99% ; Pain 0/10; bm8 23:46 BP 115 / 76; Pulse 69; Resp 17; Pulse Ox 100% ; jj7 12/30 00:47 BP 106 / 78; Pulse 60; Resp 18; Temp 97.8; Pulse Ox 98% ; Pain 0/10; bm8 12/29 21:08 Body Mass Index 15.82 (58.97 kg, 193.04 cm) kj2 12/29 21:08 Pain Scale: Adult kj2 22:39 Pain Scale: Adult bm8 12/30 00:47 Pain Scale: Adult 8 NIH Stroke Scale Scores: 12/29 22:20 NIHSS Score: 0 bm8 David Coma Score: 22:20 Eye Response: spontaneous(4). Motor Response: obeys commands(6). Verbal Response: bm8 oriented(5). Total: . :39 Eye Response: spontaneous(4). Motor Response: obeys commands(6). Verbal Response: bm8 oriented(5). Total: 15. 12/30 00:47 Eye Response: spontaneous(4). Motor Response: obeys commands(6). Verbal Response: bm8 oriented(5). Total: 15. :59 Eye Response: spontaneous(4). Motor Response: obeys commands(6). Verbal Response: sp4 oriented(5). Total: 15. Procedures: 12/29 23:30 I \T\ D: Incision and drainage was performed for an abscess of the left left wrist sp4 Prepped with Betadine, alcohol, Anesthetized with 6 ml's 1% Lidocaine. Incised with #11 blade. Drained small amount purulent fluid. Dressing: sterile 4x4 gauze, Kerlix Wrap the patient tolerated the procedure well, Patient has small abscess left wrist ulnar side of the wrist, consistent with infected spider bite. MDM: 21:01 Patient medically screened. sp4 12/30 00:24 ED course: TECHNIQUE: Axial computed tomography images of the chest, abdomen and pelvis sp4 with intravenous contrast. Sagittal and coronal reformatted images were created and reviewed. This CT exam was performed using one or more of the following dose reduction techniques: automated exposure control, adjustment of the mA and/or kV according to patient size, and/or use of iterative reconstruction technique. DLP: 532 mGy*cm COMPARISON: None. FINDINGS: CHEST: LUNGS: Diffuse hyperinflation. No focal consolidation. No mass. PLEURAL SPACE: Unremarkable. No significant effusion. No pneumothorax. HEART: Unremarkable. No cardiomegaly. No significant pericardial effusion. No significant coronary artery calcifications. ABDOMEN: LIVER: Unremarkable. No mass. GALLBLADDER AND BILE DUCTS: Unremarkable. No calcified stones. No ductal dilation. PANCREAS: Unremarkable. No ductal dilation. No mass. SPLEEN: Unremarkable. No splenomegaly. ADRENALS: Unremarkable. No mass. KIDNEYS AND URETERS: Unremarkable. No hydronephrosis. No solid mass. STOMACH AND BOWEL: Diffuse prominence of the small bowel with wall thickening and mucosal enhancement. Similarappearing finding involving the large bowel. Diffuse gastric distention with wall thickening and enhancement. PELVIS: APPENDIX: The appendix is seen and is within normal limits. BLADDER: Unremarkable. No mass. REPRODUCTIVE: Unremarkable as visualized. CHEST, ABDOMEN and PELVIS: INTRAPERITONEAL SPACE: Unremarkable. No significant fluid collection. No free air. BONES/JOINTS: Advanced L5-S1 degenerative changes. No acute fracture. No dislocation. SOFT TISSUES: Unremarkable. VASCULATURE: Unremarkable. No aortic aneurysm. LYMPH NODES: Unremarkable. No enlarged lymph nodes. IMPRESSION: 1. Findings concerning for infectious or inflammatory gastroenteritis/colitis. 2. Diffuse hyperinflation. No focal consolidation. 3. Advanced L5-S1 degenerative changes. Electronically signed by: Cisco Burns DO 12/30/2023 11:35 PM. 02:01 Data reviewed: vital signs, nurses notes, old medical records, lab test result(s), sp4 radiologic studies, CT scan. Consideration of Admission/Observation Escalation of care including admission/observation considered. ED course: Workup today is unremarkable, patient is negative for HIV and hepatitis, patient has signs of gastroenteritis based on the CT findings. Stable for discharge home with medication for nausea also clear liquid diet, also Bactrim and Keflex prescribed for acutely abscessed infected spider bite of the left wrist. . 12/29 21:01 Order name: CBC with Diff; Complete Time: 23:30 [facility] 12/29 21:01 Order name: CMP; Complete Time: 23:12 [facility] 12/29 21:01 Order name: Lipase; Complete Time: 23:12 [facility] 12/29 21:01 Order name: Urinalysis w/ reflexes; Complete Time: 00:56 [facility] 12/29 21:13 Order name: Urine Drug Screen; Complete Time: 02:02 [facility] 12/29 21:14 Order name: Alcohol Level; Complete Time: 23:12 [facility] 12/29 21:14 Order name: Lactate w/ 2H reflex if indic.; Complete Time: 23:12 [facility] 12/29 21:15 Order name: Blood Culture Adult (2) [facility] 12/29 21:30 Order name: HIV Ag/Ab Combo; Complete Time: 00:21 [facility] 12/29 21:30 Order name: Hepatitis Panel; Complete Time: 00:21 [facility] 12/29 21:59 Order name: Creatine Phosphokinase; Complete Time: 23:12 [facility]MS 12/29 21:59 Order name: T4 Free; Complete Time: 23:12 EDMS 12/29 21:59 Order name: Thyroid Stimulating Hormone; Complete Time: 23:12 EDMS 12/29 22:22 Order name: Manual Differential; Complete Time: 23:30 EDMS 12/29 21:30 Order name: CT Chest, Abdomen, Pelvis - W/Contrast sp4 12/29 21:01 Order name: IV Saline Lock; Complete Time: 21:47 sp4 12/29 21:01 Order name: Labs collected and sent; Complete Time: 21:47 sp4 12/29 23:29 Order name: Incision \T\ Drainage Setup; Complete Time: 23:40 sp4 Administered Medications: 12/29 21:47 Drug: NS 0.9% IV 1000 ml IV at 125 ml/hr continuous Route: IV; Rate: 125 ml/hr; Site: [facility] right hand; 12/30 00:26 Follow up: Response: No adverse reaction; IV Status: Completed infusion; IV Intake: bm8 1000ml 12/29 21:47 Drug: Banana Bag - (Multivitamin IV 1 amp, NS 0.9% IV 1000 ml, Thiamine IV 100 mg, 8 foLIC Acid IVPB 1 mg) IV at calculated rate once Route: IV; Rate: calculated rate; Site: right hand; 23:14 Follow up: Response: No adverse reaction; IV Status: Completed infusion; IV Intake: bm8 1000ml 21:56 Drug: Ondansetron IVP 4 mg IVP once; over 2 minutes Route: IVP; Site: right hand; [facility] 23:14 Follow up: Response: No adverse reaction [facility] 21:56 Drug: Rocephin - Rocephin (cefTRIAXone) IVPB 1 grams IVPB once over 30 mins; (mix in 50 bm8 mL NS) Route: IVPB; Infused Over: 30 mins; Site: right hand; 23:13 Follow up: Response: No adverse reaction; IV Status: Completed infusion; IV Intake: [id number] 23:40 Drug: Lidocaine Infiltration (1 %) 20 ml 20 ml Infiltration once; to bedside {Note: by [facility] provider.} Volume: 20 ml; Route: Infiltration; Site: affected area; 12/30 00:04 Follow up: Response: No adverse reaction [facility] 12/29 23:45 Drug: Famotidine IVP 20 mg IVP once; dilute with 10 mL 0.9% NaCl; give over 2 minutes bm8 Route: IVP; Site: left forearm; 12/30 00:26 Follow up: Response: No adverse reaction bm8 00:04 Drug: Alum-Mag Hydroxide-Simeth PO Suspension (200 mg-200 mg-20 mg/5 mL) 30 ml PO once bm8 Route: PO; 00:26 Follow up: Response: No adverse reaction bm8 Point of Care Testing: Blood Glucose: 12/29 21:14 Blood Glucose: 111 mg/dL; bm8 Ranges: Critical Glucose Levels:Adult <50 mg/dl or >400 mg/dl <40 mg/dl or >180 mg/dl Disposition Summary: 12/31/23 00:29 Discharge Ordered Notes: we recommend Clear Liquid Diet for 24 hours Location: Home sp4 Problem: new sp4 Symptoms: have improved sp4 Condition: Stable sp4 Diagnosis - Dehydration sp4 - Noninfective gastroenteritis and colitis, unspecified sp4 - Due to heat exhaustion, acute gastroenteritis, nausea and vomiting, left wrist and sp4 left forearm abscess, infected spider bite Followup: sp4 - With: Private Physician - When: 7 - 10 days - Reason: Recheck today's complaints Discharge Instructions: - Discharge Summary Sheet sp4 - Clear Liquid Diet, Adult, [id number] sp4 - Brown Recluse Spider Bite, Rips-by-Smhb sp4 Forms: - Patient Portal Instructions sp4 Prescriptions: - ondansetron 8 mg Oral Tablet,disintegrating - take 1 tablet ORAL route every 6 hours PRN nausea; 30 tablet; Refills: 0, sp4 Product Selection Permitted - Cephalexin 500 mg Oral Capsule - take 1 capsule ORAL route every 8 hours for 10 days; 30 capsule; Refills: 0, sp4 Product Selection Permitted - Bactrim DS 800-160 mg Oral Tablet - take 1 tablet ORAL route every 12 hours for 10 days; 20 tablet; Refills: 0, sp4 Product Selection Permitted NIH Stroke Scale - NIH Stroke Score Date: 12/30/2023 Time: 22:20 Total Score = 0 10. Dysarthria (speech clarity - read or repeat words) - 0(Normal) 11. Extinction and Inattention (visual/tactile/auditory/spatial/personal) - 0(No abnormality) 1a. Level of Consciousness (LOC) - 0(Alert) 1b. Level of Consciousness (LOC) (Month \T\ Age) - 0(Both) 1c. LOC Commands (Open \T\ Closes Eyes/Cost Recovery Technician) - 0(Both) 2. Best Gaze (Lateral Gaze Paresis) - 0(Normal) 3. Visual Field Loss - 0(No visual loss) 4. Facial Palsy - 0(Normal) 5a. Left Arm: Motor (10-second hold) - 0(No drift) 5b. Right Arm: Motor (10-second hold) - 0(No drift) 6a. Left Leg: Motor (5-second hold - always test supine) - 0(No drift) 6b. Right Leg: Motor (5-second hold - always test supine) - 0(No drift) 7. Limb Ataxia (finger/nose \T\ heel/vasquez - test with eyes open) - 0(Absent) 8. Sensory Loss (pinprick arms/legs/face) - 0(Normal) 9. Best Language: Aphasia (description/naming/reading) - 0(No aphasia) Initials: bm8 Signatures: Dispatcher [employer] [facility] Edvin Guerrier MD MD sp4 Ba Arias RN RN bm8 Ora Reyna, GODFREY RN kj2 Corrections: (The following items were deleted from the chart) 21:15 21:15 BLOOD CULTURE*+BA.LAB.BRZ ordered. EDMO EDMO 21:30 21:30 Chest Abdomen Pelvis W Con+CT.RAD.BRZ ordered. EDMO EDMO 21:14 CREATINE PHOSPHOKINASE+C.LAB.BRZ ordered. EDMO EDMO 21:14 THYROID STIMULAT HORMONE+C.LAB.BRZ ordered. EDMO EDMO 21:14 T4 FREE+C.LAB.BRZ ordered. [facility] 12/30 02:00 01:58 Patient complains of heat exhaustion over several days also complains of sp4 left wrist abscess secondary to spider bite and multiple areas of lesions also thought to be secondary to spider bites. sp4
[2023-12-31 00:56] LABS: Barbiturates NEGATIVE (NEGATIVE); Benzodiazepines NEGATIVE (NEGATIVE); Cocaine NEGATIVE (NEGATIVE); METHAMPHETAM POSITIVE (NEGATIVE); Methadone NEGATIVE (NEGATIVE); Opiates NEGATIVE (NEGATIVE); Phencyclidine NEGATIVE (NEGATIVE); THC Cannibis POSITIVE (NEGATIVE)
[2023-12-31 01:17] VITALS: TEMP 97.8
[2023-12-31 01:30] VITALS: BP 106/78; O2SAT 98
--- NOTE | 2024-01-03 12:01 | RAD REPORT ---
EXAM DESCRIPTION: CT - Chest Abdomen Pelvis W Cont - 12/31/2023 7:05 am CLINICAL HISTORY: The patient is 53 years old and is Male; weight loss , eval for cancer TECHNIQUE: Axial computed tomography images of the chest, abdomen and pelvis with intravenous contra st. Sagittal and coronal reformatted images were created and reviewed. This CT exam was performed using one or more of the following dose reduction techniques: automated exposure control, adjustme nt of the mA and/or kV according to patient size, and/or use of iterative reconstruction technique. DLP: 532 mGy*cm COMPARISON: None. FINDINGS: CHEST: LUNGS: Diffuse hyperinflation. No focal consolidation. No mass. PLEURAL SPACE: Unremarkable. No significant effusion. No pneumothorax. HEART: Unremarkable. No cardiomegaly. No significant pericardial effusion. No significant cor onary artery calcifications. ABDOMEN: LIVER: Unremarkable. No mass. GALLBLADDER AND BILE DUCTS: Unremarkable. No calcified stones. No ductal dilation. PANCREAS: Unremarkable. No ductal dilation. No mass. SPLEEN: Unremarkable. No splenomegaly. ADRENALS: Unremarkable. No mass. KIDNEYS AND URETERS: Unremarkable. No hydronephrosis. No solid mass. STOMACH AND BOWEL: Diffuse prominence of the small bowel with wall thickening and mucosal enhanceme nt. Similar-appearing finding involving the large bowel. Diffuse gastric distention with wall thickening and enhancement. PELVIS: APPENDIX: The appendix is seen and is within normal limits. BLADDER: Unremarkable. No mass. REPRODUCTIVE: Unremarkable as visualized. CHEST, ABDOMEN and PELVIS: INTRAPERITONEAL SPACE: Unremarkable. No significant fluid collection. No free air. BONES/JOINTS: Advanced L5-S1 degenerative changes. No acute fracture. No dislocation. SOFT TISSUES: Unremarkable. VASCULATURE: Unremarkable. No aortic aneurysm. LYMPH NODES: Unremarkable. No enlarged lymph nodes. IMPRESSION: 1. Findings concerning for infectious or inflammatory gastroenteritis/colitis. 2. Diffuse hyperinflation. No focal consolidation. 3. Advanced L5-S1 degenerative changes. Electronically signed by: Cisco Burns DO 12/30/2023 11:35 PM CDT 9 Due to temporary technical issues with the PACS/Fluency reporting system, reports are being signed by the in house radiologist without review as a courtesy to ensure prompt reporting. The interpreting r adiologist is fully responsible for the content of the report.
== END 2023-12-31 01:00 | disposition home or self-care (01) ==
LOC: ER 20:54
PROC: 0H9EXZZ Drainage of Left Lower Arm Skin, External Approach (ICD-10-PCS; principal; 2023-12-31)
DX: E86.0 Dehydration (principal); K52.9 Noninfective gastroenteritis and colitis, unspecified; T67.5XXA Heat exhaustion, unspecified, initial encounter; L02.414 Cutaneous abscess of left upper limb; T63.301A Toxic effect of unspecified spider venom, accidental (unintentional), initial encounter; F17.210 Nicotine dependence, cigarettes, uncomplicated
CPT/HCPCS: 36415; 71260; 74177; 80053; 80074; 80307; 81003; 82077; 82550; 83605; 83690; 84439; 84443; 85025; 87040; 87389; 99285; J0696; J2001; J2405; J3411; J7030; Q9967